=== PATIENT | female | born 1985 | race Caucasian/White ===

== ENCOUNTER 2022-08-15 08:28 | Day surgery (SDC) | payer BC ==
[2022-08-15] MEDS ORDERED: hydrALAZINE 20 MG/ML VIAL SLOW IVP PRN (08:44)
[2022-08-15 09:21] LABS: Fetal Membranes Rupture No Membranes Rupture (No Rupture)
[2022-08-15 10:20] VITALS: BMI 28.8
== END 2022-08-15 10:15 | disposition home or self-care (01) ==
LOC: CSHLD/OP 08:28
PROVIDERS: ATTEND Obstetrics & Gynecology
DX: O99.891 Other specified diseases and conditions complicating pregnancy (principal); O24.419 Gestational diabetes mellitus in pregnancy, unspecified control; Z3A.31 31 weeks gestation of pregnancy
CPT/HCPCS: 84112; 87480; 87510; 87660

== ENCOUNTER 2022-09-12 14:55 | Day surgery (SDC) | payer BC ==
[2022-09-12 15:25] VITALS: BMI 28.6
== END 2022-09-12 18:00 | disposition home or self-care (01) ==
LOC: CSHLD/OP 14:55
PROVIDERS: ATTEND Obstetrics & Gynecology
DX: O47.03 False labor before 37 completed weeks of gestation, third trimester (principal); O30.043 Twin pregnancy, dichorionic/diamniotic, third trimester; Z3A.35 35 weeks gestation of pregnancy
CPT/HCPCS: 99283

== ENCOUNTER 2022-09-21 19:20 | Day surgery (SDC) | payer BC ==
[2022-09-21 20:29] LABS: Bilirubin Neg (Negative); Blood, Urine Negative (Negative); Clarity Clear (Clear); Glucose, Urine (Dipstick) Normal (Negative); Ketone, Urine 5 mg/dL (Negative); Leukocyte 25 (Negative); Nitrite Negative (Negative); Protein, Urine (Dipstick) 30 mg/dl (Neg-Trace)
[2022-09-21 20:49] LABS: Bacteria/HPF Rare-Few HPF (None Seen); Calcium Oxalate Crystals 1+ HPF (None Seen); RBC/HPF None Seen HPF (0-3); Squamous Epithelial 0-3 HPF (0-3); WBC/HPF 0-3 HPF (0-3)
[2022-09-21 22:23] VITALS: BMI 29.3
[2022-09-21 22:34] LABS: #Eosinphils 0.1 10x3/uL (0.0-0.5); #Monocytes 0.5 10x3/uL (0.0-1.1); #Neutrophils 4.6 10x3/uL (1.5-8.4); %Basophils 0.4 % (0.0-2.0); %Eosinophils 1.2 % (0.0-6.0); %Lymphocytes 28.2 % (18.0-47.0); %Monocytes 6.9 % (0.0-10.0); %Neutrophils 62.8 % (40.0-75.0); Hemoglobin 11.1 g/dL (12.0-15.5); Mean Corpuscular HGB CONC 34.5 g/dL (32.0-36.0); Mean Platelet Volume 11.3 fl (7.4-10.4); Platelet Count 180 10x3/uL (150-450); RBC Distribution Width 13.2 % (11.5-14.5); White Blood Cell (WBC) Count 7.4 10x3/uL (3.5-10.5)
[2022-09-21 22:47] LABS: ALT (SGPT) 11 U/L (8-55); AST (SGOT) 30 U/L (5-34); Albumin 3.3 g/dL (3.5-5.0); Alkaline Phosphatase 131 U/L (40-110); Anion Gap 13 mmol/L (10-20); BUN (Urea Nitrogen) 12 mg/dL (7.0-18.7); Bilirubin, Total 0.4 mg/dL (0.2-1.2); Calc. Creatinine Clearance 164 mL/min (70-130); Calcium 9.1 mg/dL (7.8-10.44); Carbon Dioxide 21 mmol/L (22-29); Chloride 106 mmol/L (98-107); Estimated GFR 115; Globulin 3.1 g/dL (2.4-3.5); Glucose 74 mg/dL (70-105); Potassium 3.9 mmol/L (3.5-5.1); Protein, Total 6.4 g/dL (6.0-8.3); Sodium 136 mmol/L (136-145)
== END 2022-09-22 00:04 | disposition home or self-care (01) ==
LOC: CSHLD/OP 19:20
PROVIDERS: ATTEND Obstetrics & Gynecology
DX: O13.3 Gestational [pregnancy-induced] hypertension without significant proteinuria, third trimester (principal); O30.043 Twin pregnancy, dichorionic/diamniotic, third trimester; O32.1XX1 Maternal care for breech presentation, fetus 1; O09.513 Supervision of elderly primigravida, third trimester; Z3A.36 36 weeks gestation of pregnancy
CPT/HCPCS: 36415; 80053; 81001; 82570; 84156; 85025; 99285

== ENCOUNTER 2022-09-27 10:19 | Inpatient (IN) | payer BC ==
[2022-09-26 12:26] LABS: Hemoglobin 11.9 g/dL (12.0-15.5); Platelet Count 216 10x3/uL (150-450)
[2022-09-26 12:50] LABS: SARS-CoV-2 NAA Rapid Test Not Detected (NotDetected)
[2022-09-26 12:55] LABS: Syphilis Antibody Nonreactive (Nonreactive); Syphilis Antibody Index 0.16 S/CO (<1.00 Non-Reactive)
[2022-09-26 12:56] LABS: HBSAg Index 0.15 S/CO (0-0.99); Hep B Surf Ag Non-Reactive S/CO (NonReactive)
[2022-09-27] MEDS ORDERED: Fentanyl 100 MCG/2 ML VIAL ONE (11:53)
[2022-09-27] MEDS ORDERED: Morphine PF 10 MG/10 ML VIAL ONE (11:53)
[2022-09-27] MEDS ORDERED: diphenhydrAMINE 25 MG CAP PO PRN (11:55)
[2022-09-27] MEDS ORDERED: Misoprostol 200 MCG TAB PR PRN (11:55)
[2022-09-27] MEDS ORDERED: Ondansetron PF 4 MG/2 ML Vial IVP PRN ×3 (11:55→15:54)
[2022-09-27] MEDS ORDERED: HYDROcodone/Acetaminophen 5/325 mg Tablet PO PRN ×2 (11:55)
[2022-09-27] MEDS ORDERED: Bisacodyl 10 MG SUPP PR PRN (11:55)
[2022-09-27] MEDS ORDERED: hydrALAZINE 20 MG/ML VIAL SLOW IVP PRN ×2 (11:55→15:54)
[2022-09-27] MEDS ORDERED: Boostrix 0.5 ML (Tdap) VIAL (>/=7 yrs of age) IM ONE (11:55)
[2022-09-27] MEDS ORDERED: Lanolin Ointment 7 GM TUBE TOP PRN (11:55)
[2022-09-27] MEDS ORDERED: Ondansetron PF 4 MG/2 ML Vial ONE (12:10)
[2022-09-27] MEDS ORDERED: Dexamethasone 4 mg/ml Vial ONE (12:10)
[2022-09-27] MEDS ORDERED: Ketorolac Tromethamine 30 MG/ML VIAL ONE (12:10)
[2022-09-27] MEDS ORDERED: Oxytocin 10 UNITS/ML VIAL ONE (12:20)
[2022-09-27] MEDS ORDERED: diphenhydrAMINE 50 MG/ML VIAL ONE (12:45)
[2022-09-27] MEDS ORDERED: Moisturizing Cream (Eucerin) 113 GM JAR TOP PRN (12:59)
[2022-09-27] MEDS ORDERED: Meperidine HCl/PF 25 MG/ML VIAL SLOW IVP PRN (12:59)
[2022-09-27] MEDS ORDERED: Naloxone HCl 0.4 mg/ml Vial IVP PRN ×2 (12:59)
[2022-09-27] MEDS ORDERED: Fentanyl 100 MCG/2 ML VIAL SLOW IVP PRN (12:59)
[2022-09-27] MEDS ORDERED: Ondansetron HCl/PF 4 MG/2 ML Vial IVP PRN (12:59)
[2022-09-27] MEDS ORDERED: Promethazine HCl 25 MG SUPP PR PRN (12:59)
[2022-09-27] MEDS ORDERED: diphenhydrAMINE 50 MG/ML VIAL IVP PRN (12:59)
[2022-09-27] MEDS ORDERED: Naloxone HCl 0.4 mg/ml Vial IV PRN (12:59)
[2022-09-27] MEDS ORDERED: Promethazine HCl 25 MG/ML VIAL IM PRN ×2 (12:59→15:54)
[2022-09-27] MEDS ORDERED: Communication Order-Pharmacy FS SCH (13:00)
[2022-09-27] MEDS ORDERED: NS w/ Oxytocin 30 units 500 ML ONE (13:11)
[2022-09-27] MEDS ORDERED: CEFAZOLIN 2 GM VIAL ONE (13:14)
[2022-09-27] MEDS ORDERED: Ibuprofen 800 MG TAB PO SCH (14:00)
[2022-09-27 14:48] VITALS: BMI 31.6
[2022-09-27] MEDS ORDERED: Famotidine/PF 20 mg/2ml Vial SLOW IVP PRN (15:54)
[2022-09-27] MEDS ORDERED: CEFAZOLIN 2 GM in Sodium Chloride 0.9% 100 ML IVPB SCH (15:54)
[2022-09-27] MEDS ORDERED: Bicitra 30 ML UDCUP PO PRN (15:54)
[2022-09-27] MEDS ORDERED: Ketorolac Tromethamine 30 MG/ML VIAL IVP SCH (19:00)
[2022-09-27] MEDS: Ketorolac Tromethamine 30 MG/ML VIAL IVP SCH (20:24)
[2022-09-27] MEDS: Ferrous Sulfate 325 MG TAB PO SCH (21:00)
[2022-09-27] MEDS: Docusate 100 MG CAP PO SCH (21:15)
[2022-09-28] MEDS: Ketorolac Tromethamine 30 MG/ML VIAL IVP SCH ×3 (02:29→14:15)
[2022-09-28] MEDS: Simethicone Chewable 80 MG TAB PO PRN ×2 (02:32→14:21)
[2022-09-28 03:57] LABS: Hemoglobin 8.5 g/dL (12.0-15.5); Mean Corpuscular Volume 86.1 fl (81.6-98.3); Mean Platelet Volume 11.6 fl (7.4-10.4); Platelet Count 165 10x3/uL (150-450); Red Blood Cell (RBC) Count 2.74 10x6/uL (3.90-5.03); White Blood Cell (WBC) Count 12.1 10x3/uL (3.5-10.5)
[2022-09-28] MEDS: Ferrous Sulfate 325 MG TAB PO SCH ×2 (08:09→21:33)
[2022-09-28] MEDS: Prenatal Vitamin 1 TAB PO SCH (08:10)
[2022-09-28] MEDS: Docusate 100 MG CAP PO SCH ×2 (08:10→21:33)
[2022-09-28] MEDS ORDERED: Ibuprofen 800 MG TAB PO SCH (19:00)
[2022-09-28] MEDS: Acetaminophen 325 MG TAB PO PRN (19:41)
[2022-09-28] MEDS: Ibuprofen 800 MG TAB PO SCH (21:33)
[2022-09-29] MEDS: Ibuprofen 800 MG TAB PO SCH ×3 (06:26→22:01)
[2022-09-29] MEDS: Ferrous Sulfate 325 MG TAB PO SCH ×2 (08:35→22:01)
[2022-09-29] MEDS: Prenatal Vitamin 1 TAB PO SCH (08:35)
[2022-09-29] MEDS: Docusate 100 MG CAP PO SCH ×2 (08:35→22:01)
[2022-09-29] MEDS: Acetaminophen 325 MG TAB PO PRN (08:35)
[2022-09-30] MEDS: Ibuprofen 800 MG TAB PO SCH (05:16)
[2022-09-30] MEDS: Docusate 100 MG CAP PO SCH (08:46)
[2022-09-30] MEDS: Ferrous Sulfate 325 MG TAB PO SCH (08:46)
[2022-09-30] MEDS: Prenatal Vitamin 1 TAB PO SCH (08:46)
[2022-09-30 12:24] VITALS: BP 151/89; TEMP 98.5
== END 2022-09-30 13:32 | disposition home or self-care (01) | DRG 787 ==
LOC: CSHLD 10:19 → CSHPED 15:45
PROVIDERS: ADMIT Obstetrics & Gynecology; ATTEND Obstetrics & Gynecology
PROC: 10D00Z1 Extraction of Products of Conception, Low, Open Approach (ICD-10-PCS; principal; 2022-09-27)
DX: O30.043 Twin pregnancy, dichorionic/diamniotic, third trimester (principal); D62 Acute posthemorrhagic anemia; O13.4 Gestational [pregnancy-induced] hypertension without significant proteinuria, complicating childbirth; O32.1XX1 Maternal care for breech presentation, fetus 1; O32.1XX2 Maternal care for breech presentation, fetus 2; Z20.822 Contact with and (suspected) exposure to COVID-19; Z37.2 Twins, both liveborn; Z3A.37 37 weeks gestation of pregnancy; Z98.890 Other specified postprocedural states; Z80.8 Family history of malignant neoplasm of other organs or systems; Z79.82 Long term (current) use of aspirin; O90.81 Anemia of the puerperium
CPT/HCPCS: 51702; 85014; 85018; 85027; 85049; 86780; 86850; 86900; 86901; 87340; J1100; J1200; J1885; J2274; J2405; J2590; J3010; U0002